=== PATIENT | female | born 1975 | race Caucasian/White ===

== ENCOUNTER 2018-03-27 12:49 | Emergency (ER) | payer MEDICAID, SELFPAY ==
[2018-03-27 12:49] VITALS: BP 122/70; PULSE 84; RESP 18; TEMP 36.6; O2SAT 99; BMI 37.1
[2018-03-27 13:08] VITALS: BP 115/75; PULSE 80; RESP 14; O2SAT 98
--- NOTE | 2018-03-27 13:26 | CT_ITS ---
STUDY: CT CERVICAL SPINE WITHOUT CONTRAST REASON FOR EXAM: Female, 43 years old. NUMB TINGLING BOTH ARMS. CERVICAL FUSION 2017 RADIATION DOSAGE (If Supplied By Facility): CTDIvol = ( 27.59 ) mGy, DLP = ( 518.36 ) mGycm TECHNIQUE: The patient was scanned in a multi detector CT scanner. High resolution transaxial imaging was performed. Sagittal and coronal images were reconstructed. Individualized dose optimization techniques were used for this CT. COMPARISON: None FINDINGS: There is normal cervical lordosis. There are no fractures of the cervical spine. The atlantoaxial relationships are normal.. Prevertebral soft tissues are within normal limits. There is anterior fusion at C5/C6 There is multilevel endplate spondylosis of the vertebrae. There is multi-level degenerative disc disease with multi-level disc space narrowing. Normal visualized paraspinous soft tissue structures. CT/Spine Cervical without Contras IMPRESSION: No demonstrated fractures. Multilevel degenerative changes. Electronically Signed: Roger Carlson MD at 13:57 EDT Tel , Service support ,
--- NOTE | 2018-03-27 14:10 | ED.VISSUMM ---
- ER Visit Summary Date of Service: 03/27/18 Chief Complaint: Numbness bilateral arms History of Present Illness: The patient is a 43 F with a history of cervical fusion a year and a half ago. Patient recently started a new job 3 weeks ago where she is lifting heavier objects again. She now has pain that radiates to her arms with waxing and waning numbness. She states her arms will occasionally feel weak. She has not had any direct injury to her neck. She is not currently taking anything for pain. Physical Examination: Vital signs are unremarkable. Patient's lying in bed no acute distress. Head neck examination was no reproducible C-spine tenderness. Heart is regular rate and rhythm. Lung sounds are clear. Abdomen is soft nontender. Neuro exam at this time is normal. She has strong distal pulses with normal strength and sensation on testing. Test Results: CT the C-spine shows multilevel degenerative changes. Anterior fusion at C5-6 is noted. Emergency Department Course and Treatment: Test results were discussed with the patient. I discussed with her that MRI would be a better exam to evaluate the nurse, however I do not have access to this for the emergency room on a weekend. I encouraged her to follow up with her surgeon. In the meantime she will be given Naprosyn and Valium as a relaxer. Treatment Plan: [] Disposition: Discharge Impression: Cervical radiculopathy This note was generated with [employer] dictation software. It may contain incorrect words, spelling, and punctuation that were not noted in review of the chart prior to signing ED Disposition - Plan for ED Patient: Chief Complaint: Numb/Ting Referrals: [facility] Doctor,Out of [Primary Care Provider] -
--- NOTE | 2018-03-27 14:12 | ED.DEP ---
ED Disposition - Plan for ED Patient: Disposition: Home or Assisted Living Chief Complaint: Numb/Ting Instructions: ED Cervical Radiculopathy Prescriptions: Diazepam [Valium] 0.5 - 1 tab PO Q8 PRN #10 tablet PRN Reason: Muscle Spasm Naproxen [Naprosyn] 500 mg PO BID PRN PRN #20 tablet PRN Reason: Pain Referrals: Chan Mcclendon MD [STAFF PHYSICIAN] - As Needed
[2018-03-27] MEDS: Naproxen 500 MG Tablet PO (14:24)
[2018-03-27 14:40] VITALS: BP 130/78; PULSE 80; RESP 14; O2SAT 98
== END 2018-03-27 14:41 | disposition home or self-care (01) ==
PROVIDERS: Emergency Provider Emergency Medicine
DX: M54.12 Radiculopathy, cervical region (principal)
CPT/HCPCS: 72125; 99283

== ENCOUNTER 2018-04-14 10:27 | Emergency (ER) | payer MEDICAID, SELFPAY ==
[2018-04-14 10:28] VITALS: BP 112/82; PULSE 87; RESP 16; TEMP 36.7; O2SAT 99; BMI 39.7
--- NOTE | 2018-04-14 10:44 | NURSING ---
NO OLD EKGS
--- NOTE | 2018-04-14 10:46 | ED.DCSUM_ITS ---
- ER Visit Summary Date of Service: 04/14/18 Chief Complaint: Bilateral arm paresthesias History of Present Illness: The patient is a 43 F who presents with bilateral arm paresthesias. Patient was seen in the emergency department at the end of March had a CT scan of her neck showed multilevel degenerative changes and a cervical fusion. Patient was given naproxen and Valium which she is not taking stating they were not helping when she took them. She states she made an appointment with her spine surgeon but not until May. She reports that with her new job she is doing more lifting than normal and wonders if that is causing her symptoms. She came to the emergency department hoping to get an MRI. Denies any acute neurologic deficits. No known trauma Physical Examination: Afebrile vital signs are stable Gen: Well-nourished well-developed Head: Normocephalic atraumatic Eyes: Perrl EOMI ENT: TMs clear no rhinorrhea moist mucous membranes Neck: Supple no lymphadenopathy no JVD paraspinal muscular tenderness to palpation CVS: Regular rate rhythm no murmurs normal S1-S2 Respiratory: No distress clear to auscultation bilaterally chest nontender Abdomen: Soft nontender nondistended normal bowel sounds no masses Back: Nontender Extremity: Nontender no edema Skin: Normal color no rash Neuro: alert orientated ?3 CN II-XII intact normal strength sensation reflexes gait cerebellar Psych: Normal affect normal mood Emergency Department Course and Treatment: Do not feel an emergent MRI is indicated. I did review the patient's cervical spine CT. I encouraged use of the naproxen for its anti-inflammatory effects. Patient would like to see if she is a diabetic and will check her blood sugar. If this is okay we can do a short dose of steroids to see if that helps her. She was encouraged to establish primary care (she tried to do that last week but was a no-show for her appointment). Impression: 1. Cervical radiculopathy This note was generated with [employer] dictation software. It may contain incorrect words, spelling, and punctuation that were not noted in review of the chart prior to signing ED Disposition - Plan for ED Patient: Disposition: Home or Assisted Living Chief Complaint: Numb/Ting Instructions: ED Cervical Radiculopathy Prescriptions: Prednisone [Deltasone] 40 mg PO DAILY #10 tab Additional Instructions: Follow-up with your neurosurgeon I encourage you to establish primary care
[2018-04-14 11:10] LABS: Bedside Glucose 93 mg/dL (70-110)
== END 2018-04-14 11:20 | disposition home or self-care (01) ==
LOC: ED 10:56
PROVIDERS: Emergency Provider Emergency Medicine
DX: M54.12 Radiculopathy, cervical region (principal); Z98.1 Arthrodesis status
CPT/HCPCS: 82962; 99282

== ENCOUNTER → 2018-07-18 09:36 | Outpatient (CLI) | payer MEDICAID, SELFPAY ==
[2018-07-18 08:59] VITALS: BMI 40.3
[2018-07-18 09:55] LABS: Absolute Lymphocyte Count 1.35 X10^3/ul (0.83-4.51); Absolute Neutrophil Count 4.4 X10^3/uL (2.0-7.7); Basophil# 0.02 X10^3/uL; Basophil% 0.3 % (0-1); Eosinophil# 0.14 X10^3/uL; Eosinophils% 2.2 % (0-5); Hematocrit 39.7 % (37-47); Hemoglobin 13.3 g/dl (12.0-15.0); Lymphocyte # 1.35 X10^3/ul (4.0); Lymphocyte % 21.5 % (19-41); Mean Corp Hgb Conc 33.5 g/gl (32-36); Mean Corpuscular Hgb 30.1 pg (27.0-32.0); Mean Corpuscular Volume 89.8 fL (81-99); Mean Platelet Vol. 9.9 fl (6.2-12.0); Monocyte# 0.31 X10^3/uL; Monocyte% 4.9 % (0-10); Neutrophil # 4.44 X10^3/uL (2.7-7.7); Neutrophil % 70.9 % (47-70); Platelet Count 188 K/mm3 (150-450); RBC Distribution Width CV 12.8 % (11.6-14.6); RBC Distribution Width SD 41.5 fl (35.1-43.9); Red Blood Count 4.42 M/mm3 (4.2-5.4); White Blood Count 6.3 K/mm3 (4.4-11.0)
[2018-07-18 09:56] LABS: POSITIVE COUNT NO; POSITIVE DIFFERENTIAL NO; POSITIVE MORPHOLOGY NO
[2018-07-18 10:27] LABS: T4 Free Direct 0.79 ng/dL (0.76-1.46); Thyroid Stim Hormone (TSH) 2.75 uIU/mL (0.358-3.74)
[2018-07-18 10:30] LABS: ALB/GLOB Ratio 1.4 RATIO (0.9-2.4); AST(SGOT) 12 U/L (15-37); Alanine Aminotransfer ALT/SGPT 23 U/L (13-56); Albumin, Serum 3.8 g/dL (3.2-5.0); Alkaline Phosphatase 45 U/L (45-117); Anion Gap 9 (5-15); BUN 10 mg/dL (7-18); BUN/Creat Ratio 14.3 RATIO (10-20); Calcium,Total 8.3 mg/dL (8.5-10.1); Chloride 106 mmol/L (98-107); Cholesterol 220 mg/dL (200); EST Glomerular Filtration Rate 98 mL/min (>60); Est Glom Filt Rate - Afr Amer 118 mL/min (>60); Globulin 2.8 g/dL (2.2-4.2); Glucose 92 mg/dL (74-106); High Density Lipoprotein 36 mg/dL; Protein, Total 6.6 g/dL (6.4-8.2); Sodium Level 138 mmol/L (136-145); Triglycerides 438 mg/dL
== END ==
PROVIDERS: Family Provider Internal Medicine; PCP Internal Medicine; Visit Provider Internal Medicine
DX: E07.9 Disorder of thyroid, unspecified (principal)
CPT/HCPCS: 36415; 80053; 80061; 84439; 84443; 85025

== ENCOUNTER → 2020-03-08 09:32 | Outpatient (CLI) | payer MEDICAID, SELFPAY ==
[2020-03-08 09:13] VITALS: BMI 40.3
[2020-03-08 12:23] LABS: Absolute Lymphocyte Count 1.51 X10^3/uL (0.83-4.51); Absolute Neutrophil Count 3.5 X10^3/uL (2.0-7.7); Basophil# 0.03 X10^3/uL; Basophil% 0.6 % (0-1); Eosinophil# 0.13 X10^3/uL; Eosinophils% 2.4 % (0-5); Hematocrit 39.6 % (37-47); Hemoglobin 13.3 g/dL (12.0-15.0); Lymphocyte # 1.51 X10^3/ul (4.0); Lymphocyte % 27.7 % (19-41); Mean Corp Hgb Conc 33.6 g/dL (32-36); Mean Corpuscular Hgb 30.4 pg (27.0-32.0); Mean Corpuscular Volume 90.4 fL (81-99); Mean Platelet Vol. 10.9 fl (6.2-12.0); Monocyte% 5.5 % (0-10); NRBC Flagged by Analyzer 0 % (0-5); Neutrophil # 3.47 X10^3/uL (2.7-7.7); Neutrophil % 63.6 % (47-70); Platelet Count 232 K/mm3 (150-450); RBC Distribution Width CV 12.7 % (11.6-14.6); RBC Distribution Width SD 41.5 fl (35.1-43.9); Red Blood Count 4.38 M/mm3 (4.2-5.4); White Blood Count 5.5 K/mm3 (4.4-11.0)
[2020-03-08 12:29] LABS: ALB/GLOB Ratio 1.3 RATIO (0.9-2.4); AST(SGOT) 14 U/L (15-37); Alanine Aminotransfer ALT/SGPT 18 U/L (13-56); Alkaline Phosphatase 50 U/L (45-117); Anion Gap 7 (5-15); BUN 11 mg/dL (7-18); BUN/Creat Ratio 16.2 RATIO (10-20); Calcium,Total 8.8 mg/dL (8.5-10.1); Chloride 109 mmol/L (98-107); Cholesterol 199 mg/dL (200); Creatinine, Serum 0.68 mg/dL (0.55-1.02); EST Glomerular Filtration Rate 100 mL/min (>60); Est Glom Filt Rate - Afr Amer 121 mL/min (>60); Globulin 3.1 g/dL (2.2-4.2); Glucose 84 mg/dL (74-106); High Density Lipoprotein 38 mg/dL; Potassium 3.8 mmol/L (3.5-5.1); Protein, Total 7.1 g/dL (6.4-8.2); Sodium Level 141 mmol/L (136-145); Triglycerides 142 mg/dL; Very Low Density Lipoprotein 28 mg/dL (5-40)
== END ==
PROVIDERS: PCP Internal Medicine; Referring Provider Internal Medicine; Visit Provider Internal Medicine
DX: E78.5 Hyperlipidemia, unspecified (principal); F41.8 Other specified anxiety disorders
CPT/HCPCS: 36415; 80053; 80061; 85025

== ENCOUNTER → 2020-03-22 13:00 | Outpatient (CLI) | payer MEDICAID, SELFPAY ==
[2020-03-08 09:13] VITALS: BMI 40.3
--- NOTE | 2020-03-22 13:12 | BI_ITS ---
MAMMOGRAPHY - BILATERAL SCREENING REASON FOR EXAM: Female, 45 years old. Routine annual screening examination. PERTINENT HISTORY: Aunt with breast cancer. TECHNIQUE: Digital bilateral breast jossy (3D mammographic acquisition) in the CC and MLO projections. 2-D mediolateral oblique (MLO) and craniocaudad (CC) views of both breasts were obtained. CAD: Full Field Digital Mammography with Computer Added Detection was performed. COMPARISON: None. Baseline examination. FINDINGS: Breast Composition: There are scattered areas of fibroglandular density. There are no dominant masses or suspicious calcifications. Small benign-appearing bilateral axillary lymph nodes. No other significant abnormalities are identified. BI/SCREEN MAMM (CAD) W/JOSSY BILAT IMPRESSION: Negative screening mammogram. Yearly followup mammogram recommended. (A) ASSESSMENT CATEGORY: BIRADS Category 2: Benign. A letter regarding these results will be sent to the patient by the facility within 30 days. Approximately 10% of breast cancers are not detected by mammography. A normal mammogram should not delay biopsy of a clinically suspicious abnormality. [id number] Electronically Signed: Rojas Layne, at 14:04 EDT , Service support ,
== END ==
PROVIDERS: PCP Internal Medicine; Referring Provider Internal Medicine; Visit Provider Internal Medicine
DX: Z12.31 Encounter for screening mammogram for malignant neoplasm of breast (principal); Z80.3 Family history of malignant neoplasm of breast
CPT/HCPCS: 77063; 77067

== ENCOUNTER → 2020-03-28 08:54 | Outpatient (CLI) | payer MEDICAID, SELFPAY ==
[2020-03-27 14:35] VITALS: BMI 40.3
[2020-03-28 12:27] LABS: Amphetamine Urine VISTA NEGATIVE (<1000 ng/mL); Barbiturate Urine VISTA NEGATIVE (< 200 ng/mL); Benzodiazepine Urine VISTA NEGATIVE (< 200 ng/mL); Cocaine Urine VISTA NEGATIVE (< 300 ng/mL); Ecstacy Urine VISTA NEGATIVE (< 500 ng/mL); Methadone Urine VISTA NEGATIVE (< 300 ng/mL); PCP Urine VISTA NEGATIVE (< 25 ng/mL); THC Urine VISTA NEGATIVE (< 50 ng/mL); Vista UDS pH Range 6
== END ==
PROVIDERS: PCP Internal Medicine; Referring Provider Nurse Practitioner Family; Visit Provider Nurse Practitioner Family
DX: F41.8 Other specified anxiety disorders (principal)
CPT/HCPCS: 80307

== ENCOUNTER 2021-05-21 13:13 | Emergency (ER) | payer MEDICAID, SELFPAY ==
[2021-05-21 13:14] VITALS: BP 161/93; PULSE 93; RESP 18; TEMP 36.4; O2SAT 99; BMI 35.6
--- NOTE | 2021-05-21 15:09 | EKG12_ITS ---
Test Reason : OTHER PAIN Blood Pressure : / mmHG Vent. Rate : 064 BPM Atrial Rate : 064 BPM P-R Int : 152 ms QRS Dur : 084 ms QT Int : 404 ms P-R-T Axes : 026 031 015 degrees QTc Int : 416 ms Normal sinus rhythm Normal ECG Confirmed by SAMMY SCALES, LEO ([id number]), make up editor MIGUEL ENCISO ([id number]) on 05/23/2021 1:51:44 P M Referred By: SEDA Confirmed By:DMITRIY CHRISTIANSON MD
--- NOTE | 2021-05-21 15:12 | EDS_ITS ---
HPI History of Present Illness Chief Complaint: Other, Pain/Inj Informant: patient Onset/Context/Timing Onset: Hours (3) Context: Sudden Onset Timing: Continuous Quality: Stabbing Location: Between her shoulder blades Worsened by: Nothing Relieved by: Stretching Narrative Narrative: Presents with sharp stabbing pain between her shoulder blades that began approximate 3 hours prior to arrival. Patient also states she has been having some burning over the epigastric area. Patient describes her pain is stabbing. Patient states it is better whenever she stretches. Patient also admits to some pain up into her left shoulder and left arm. Patient also admits to some dizziness that has been intermittent over the past 3 hours. Patient states she gets dizziness from time to time in the past. Patient admits to some mild shortness of breath. Patient denies any chest pain or palpitations. Patient admits to nausea but denies any vomiting. [facility] Medical History (Updated 05/21/21 @ 18:[address] Marcellus Stephens DO) Chronic back pain Depression Home Medications bupropion HCl 150 mg tablet,12 hr sustained-release 150 mg PO BID #180 ea 08/02/20 [Rx Last Taken Unknown] Allergy/AdvReac Type Severity Reaction Status Date / Time Penicillins Allergy Rash Verified 05/21/21 13:16 Family History Father Cancer Depression Heart disease Hypertension Mother Hypertension Surgical History History of back surgery Social History Smoking Status: Current every day smoker tobacco type: cigars Tobacco: How many years used: 15 how long ago did patient quit smokin alcohol intake: current alcohol intake frequency: a few times a month Alcohol type: wine substance use type: marijuana what type of physical activity do you participate in: none ROS ROS ED Constitutional Constitutional ED: Denies chills or fever(s) Eyes Eyes: Denies blurry vision or change in vision ENT ENT ED: Denies rhinorrhea or sore throat Cardiovascular Cardiovascular: Denies chest pain or palpitations Respiratory/Chest Respiratory/Chest: Reports dyspnea; Denies cough Gastrointestinal Gastrointestinal: Reports nausea; Denies vomiting Genitourinary Genitourinary ED: Denies dysuria or hematuria Musculoskeletal Musculoskeletal: Reports back pain and neck pain Integumentary Denies abscess or rash Neurologic Neurologic: Reports headache(s); Denies weakness Allergic/Immunologic Allergic/Immunologic ED: Denies mouth swelling or urticaria EXAM Physical Exam Const Vital Signs: 05/21/21 13:14 05/21/21 15:57 05/21/21 17:00 Temperature 97.6 F L Temperature Source Temporal Pulse Rate 93 69 Respiratory Rate 18 18 Respiratory Effort Normal Non-Labored Respiratory Pattern Normal Blood Pressure 161/93 H 157/109 H Blood Pressure Mean 115 125 Pulse Ox 99 100 Oxygen Delivery Method Room Air Room Air Positive well nourished, well developed and obese General Appearance ED: well developed Nutritional Appearance: obese HEENT Reports moist mucous membranes Neck supple and no JVD Resp normal respiratory effort and clear to auscultation bilaterally Cardio regular rate, regular rhythm and no murmurs GI normal to inspection, nondistended, normoactive bowel sounds and non-tender Palpation: soft Back/Spine Thoracic Spine / Upper Back: Negative for thoracic spinal tenderness or paraspinal muscle tenderness Extremity normal to inspection General Extremety ED: Negative for edema or tenderness General Extremity: Negative for edema Neuro oriented x3, CN's II-XII intact bilaterally and no sensory deficits noted Sensorium / Orientation: alert Motor Exam: strength 5/5 throughout Psych mental status grossly normal Skin no rashes or lesions noted MDM MDM MDM Narrative Medical decision making narrative: Patient was given Zofran and a GI cocktail here. EKG was obtained. On my interpretation, it showed a normal sinus rhythm with a rate of 64. AL interval, QRS interval, and QTc intervals were all normal. [place] was normal. There are no acute ST or T wave changes. CBC was wi thin normal limits. Comprehensive metabolic profile was normal. Initial high- sensitivity troponin was normal. CTA of the chest was obtained. There is no evidence of pulmonary embolism or aortic dissection. There is no acute cardiopulmonary process. This was interpreted by the radiologist and reviewed by myself. 2-hour repeat EKG was obtained. On my interpretation, it showed a normal sinus rhythm with a rate of 70. AL interval, QRS interval, and QTc intervals were all normal. [place] was normal. There are no acute ST or T wave changes. 2-hour repeat high-sensitivity troponin was obtained and was normal. Patient was advised of her findings. Patient was feeling better on reevaluation. Patient was instructed to take Tylenol or ibuprofen as needed for pain. Patient was instructed to follow-up with her primary care physician in 5 to 7 days. Patient understood and was agreeable with the plan. All questions were answered. Lab Data Attestation: I reviewed the patient's lab results. Labs: Laboratory Results - last 24 hr 05/21/21 05/21/21 05/21/21 15:40 15:40 17:09 WBC 8.7 RBC 4.78 Hgb 14.3 Hct 42.0 MCV 87.9 MCH 29.9 MCHC 34.0 RDW Std Deviation 40.1 RDW Coeff of Tomasa 12.4 Plt Count 225 MPV 10.0 Immature Gran % (Auto) 0.300 Neut % (Auto) 78.8 H Lymph % (Auto) 16.0 L [place] % (Auto) 3.4 Eos % (Auto) 1.0 Baso % (Auto) 0.5 Absolute Neuts (auto) 6.9 Absolute Lymphs (auto) 1.40 Nucleated RBC % 0 Sodium 136 Potassium 4.8 Chloride 109 H Carbon Dioxide 25.0 Anion Gap 2 L BUN 9 Creatinine 0.73 Estim Creat Clear Calc 94.64 Est GFR (MDRD) Af Amer 112 Est GFR (MDRD) Non-Af 92 BUN/Creatinine Ratio 12.4 Glucose 87 Calcium 9.0 Total Bilirubin 0.80 AST 27 ALT 23 Alkaline Phosphatase 45 Troponin I High Sens 5 6 Total Protein 7.4 Albumin 3.9 Globulin 3.5 Albumin/Globulin Ratio 1.1 Radiography Diagnostic Testing: Clinical Impression(s) from Imaging Studies Chest CTA 05/21/21 16:05 IMPRESSION: Normal CTA chest examination, without a demonstrated pulmonary embolism or arterial dissection. Electronically Signed: Mckinley Reid MD at 17:15 EST Tel , Service support , EKG Initial EKG: Attestation: I personally reviewed and interpreted this EKG as follows: Interpretation: Sinus Rhythm (64) and No Acute Injury Pattern Prior EKG tracings: not available for review Follow-up EKG: Attestation: I personally reviewed and interpreted this EKG as follows: Interpretation: Sinus Rhythm (70) and No Acute Injury Pattern Prior: Unchanged Discharge Plan Triage Chief Complaint: Other, Pain/Inj ED Provider: Marcellus Stephens Dx/Rx/DC Orders Clinical Impression: Acute bilateral thoracic back pain Instructions: ED Back and Neck Pain, General Prescriptions: No Action bupropion HCl [Wellbutrin SR] 150 mg tablet sustained-release 12 hr 150 mg PO BID Qty: 180 RF: 1 Primary Care Provider: Chan Mcclendon Referrals: Chan Mcclendon MD [Primary Care Provider] - 3-5 Days Disposition Disposition: Home, Self Care
--- NOTE | 2021-05-21 15:18 | NURSING ---
NO OLD EKGS
[2021-05-21 15:48] LABS: Absolute Neutrophil Count 6.9 X10^3/uL (2.0-7.7); Basophil# 0.04 X10^3/uL; Basophil% 0.5 % (0-1); Eosinophil# 0.09 X10^3/uL; Hemoglobin 14.3 g/dL (12.0-15.0); Mean Corpuscular Hgb 29.9 pg (27.0-32.0); Mean Corpuscular Volume 87.9 fL (81-99); Monocyte% 3.4 % (0-10); NRBC Flagged by Analyzer 0 % (0-5); Neutrophil # 6.88 X10^3/uL (2.7-7.7); Neutrophil % 78.8 % (47-70); Platelet Count 225 K/mm3 (150-450); RBC Distribution Width CV 12.4 % (11.6-14.6); RBC Distribution Width SD 40.1 fl (35.1-43.9); Red Blood Count 4.78 M/mm3 (4.2-5.4); White Blood Count 8.7 K/mm3 (4.4-11.0)
[2021-05-21] MEDS: Mag Hydrox/Al Hydrox/Simeth 30 ML UDC PO (15:50)
[2021-05-21] MEDS: Ondansetron 4 MG/2 ML Vial IV (15:50)
--- NOTE | 2021-05-21 16:05 | CT_ITS ---
STUDY: CTA CHEST REASON FOR EXAM: Female, 46 years old. pain RADIATION DOSAGE (If Supplied By Facility): CTDIvol = ( 13.76 ) mGy, DLP = ( 549.87 ) mGycm TECHNIQUE: The examination was performed with the intravenous administration of IV 100mL Isovue-370. Post-processing of the angiographic images was performed, with multiplanar reformation and 3D reconstruction. Individualized dose optimization techniques were used for this CT. COMPARISON: None. FINDINGS: Normal enhancement of the main pulmonary artery and right and left pulmonary arteries. Normal enhancement of the bilateral peripheral pulmonary arteries. There is no demonstrated pulmonary embolism. Normal thoracic aorta and visualized great vessels. There is no demonstrated aortic dissection. Normal heart and pericardium. Normal mediastinum. Normal hilar regions. Normal visualized trachea and bronchi. The lungs are well expanded. Normal pulmonary parenchyma. Normal pleura. Normal chest wall structures. Normal osseous structures. Normal visualized upper abdomen. CT/CTA Chest W/WO Contrast IMPRESSION: Normal CTA chest examination, without a demonstrated pulmonary embolism or arterial dissection. Electronically Signed: Mckinley Reid MD at 17:15 EST Tel , Service support ,
[2021-05-21 16:16] LABS: ALB/GLOB Ratio 1.1 RATIO (0.9-2.4); AST(SGOT) 27 U/L (15-37); Alanine Aminotransfer ALT/SGPT 23 U/L (13-56); Albumin, Serum 3.9 g/dL (3.2-5.0); Alkaline Phosphatase 45 U/L (45-117); Anion Gap 2 (5-15); BUN 9 mg/dL (7-18); BUN/Creat Ratio 12.4 RATIO (10-20); Chloride 109 mmol/L (98-107); Creatinine, Serum 0.73 mg/dL (0.55-1.02); EST Glomerular Filtration Rate 92 mL/min (>60); Est Glom Filt Rate - Afr Amer 112 mL/min (>60); Estimated Creatinine Clearance 94.64 ml/min; Globulin 3.5 g/dL (2.2-4.2); Glucose 87 mg/dL (74-106); Potassium 4.8 mmol/L (3.5-5.1); Protein, Total 7.4 g/dL (6.4-8.2); Sodium Level 136 mmol/L (136-145); Troponin-I HS 5 pg/mL (3.0-54.0)
[2021-05-21 17:00] VITALS: BP 157/109; PULSE 69; RESP 18; O2SAT 100
--- NOTE | 2021-05-21 17:09 | EKG12_ITS ---
Test Reason : REPEAT Blood Pressure : / mmHG Vent. Rate : 070 BPM Atrial Rate : 070 BPM P-R Int : 146 ms QRS Dur : 082 ms QT Int : 398 ms P-R-T Axes : 019 032 016 degrees QTc Int : 429 ms Normal sinus rhythm Normal ECG Confirmed by SAMMY SCALES, LEO ([id number]), television news video editor MIGUEL ENCISO ([id number]) on 05/23/2021 1:52:02 P M Referred By: SEDA Confirmed By:DMITRIY CHRISTIANSON MD
[2021-05-21 17:43] LABS: Troponin-I HS 6 pg/mL (3.0-54.0)
--- NOTE | 2021-05-21 19:01 | ED.RN ---
Upon entering room to discharge patient, patient was gone and gown and EKG stickers were on the bed. Pt had IV in place and it is unknown if patient left with it still in place. There was no IV cathter/dressing found in room or trash. Called patient phone and left a message.
--- NOTE | 2021-05-21 19:04 | ED.RN ---
This RN spoke with patient on the phone, patient states she left because she was cold and hungry. This acquired about the IV in her arm, she states she still has it in her arm and she planned on seeing her nurse to have it taken out This RN explains to patient she needs to return to ED immediately to have it removed by ED staff.
--- NOTE | 2021-05-21 19:30 | ED.RN ---
PT RETURNED TO THE TRIAGE DESK AT THIS TIME. PT'S IV D/C, CANNULA INTACT. DRESSING APPLIED.
== END 2021-05-21 19:39 | disposition home or self-care (01) ==
PROVIDERS: Emergency Provider Emergency Medicine; PCP Internal Medicine
DX: M54.6 Pain in thoracic spine (principal); F17.290 Nicotine dependence, other tobacco product, uncomplicated; F32.A Depression, unspecified; G89.29 Other chronic pain
CPT/HCPCS: 71275; 80053; 84484; 85025; 93005; 96374; 99284; Q9967; A4216; J2405

== ENCOUNTER → 2022-03-31 | Outpatient (CLI) | payer MEDICAID, SELFPAY ==
[2022-03-31 12:12] LABS: Absolute Lymphocyte Count 1.41 X10^3/uL (0.83-4.51); Basophil# 0.03 X10^3/uL; Basophil% 0.6 % (0-1); Eosinophil# 0.16 X10^3/uL; Eosinophils% 3.3 % (0-5); Hematocrit 41.5 % (37-47); Hemoglobin 13.9 g/dL (12.0-15.0); Lymphocyte # 1.41 X10^3/ul (0.83-4.51); Lymphocyte % 28.8 % (19-41); Mean Corp Hgb Conc 33.5 g/dL (32-36); Mean Corpuscular Volume 89.4 fL (81-99); Mean Platelet Vol. 10.8 fl (6.2-12.0); Monocyte# 0.24 X10^3/uL; Monocyte% 4.9 % (0-10); NRBC Flagged by Analyzer 0 % (0-5); Neutrophil # 3.03 X10^3/uL (2.7-7.7); Platelet Count 228 K/mm3 (150-450); RBC Distribution Width CV 12.3 % (11.6-14.6); RBC Distribution Width SD 40.3 fl (35.1-43.9); Red Blood Count 4.64 M/mm3 (4.2-5.4); White Blood Count 4.9 K/mm3 (4.4-11.0)
[2022-03-31 12:33] LABS: ALB/GLOB Ratio 1.1 RATIO (0.9-2.4); AST(SGOT) 11 U/L (15-37); Alanine Aminotransfer ALT/SGPT 26 U/L (13-56); Albumin, Serum 3.8 g/dL (3.2-5.0); Alkaline Phosphatase 46 U/L (45-117); Anion Gap 8 (5-15); BUN 11 mg/dL (7-18); BUN/Creat Ratio 14.7 RATIO (10-20); Calcium,Total 8.8 mg/dL (8.5-10.1); Chloride 107 mmol/L (98-107); Cholesterol 210 mg/dL (200); Creatinine, Serum 0.75 mg/dL (0.55-1.02); EST Glomerular Filtration Rate 89 mL/min (>60); Est Glom Filt Rate - Afr Amer 107 mL/min (>60); Globulin 3.4 g/dL (2.2-4.2); Glucose 95 mg/dL (74-106); High Density Lipoprotein 45 mg/dL; Potassium 4.3 mmol/L (3.5-5.1); Protein, Total 7.2 g/dL (6.4-8.2); Sodium Level 140 mmol/L (136-145); Thyroid Stim Hormone (TSH) 2.21 uIU/mL (0.358-3.74); Triglycerides 147 mg/dL; Very Low Density Lipoprotein 29 mg/dL (5-40)
== END | disposition home or self-care (01) ==
LOC: BIMLAB 10:39
PROVIDERS: PCP Internal Medicine; Referring Provider Nurse Practitioner Family; Visit Provider Nurse Practitioner Family
DX: E78.5 Hyperlipidemia, unspecified (principal); E07.9 Disorder of thyroid, unspecified; M54.9 Dorsalgia, unspecified; G89.29 Other chronic pain; F41.8 Other specified anxiety disorders
CPT/HCPCS: 36415; 80053; 80061; 84443; 85025

== ENCOUNTER → 2024-05-19 | Outpatient (CLI) | payer MEDICAID, SELFPAY ==
[2024-05-19 15:24] LABS: Absolute Lymphocyte Count 1.74 X10^3/uL (0.83-4.51); Absolute Neutrophil Count 4.1 X10^3/uL (2.0-7.7); Basophil# 0.03 X10^3/uL; Basophil% 0.5 % (0-1); Eosinophils% 1.6 % (0-5); Hematocrit 37.8 % (37-47); Lymphocyte # 1.74 X10^3/ul (0.83-4.51); Mean Corp Hgb Conc 34.4 g/dL (32-36); Mean Corpuscular Hgb 30.9 pg (27.0-32.0); Mean Corpuscular Volume 89.8 fL (81-99); Mean Platelet Vol. 10.9 fl (6.2-12.0); Monocyte# 0.27 X10^3/uL; Monocyte% 4.3 % (0-10); NRBC Flagged by Analyzer 0 % (0-5); Neutrophil # 4.05 X10^3/uL (2.7-7.7); Neutrophil % 65.3 % (47-70); Platelet Count 219 K/mm3 (150-450); RBC Distribution Width CV 12.4 % (11.6-14.6); RBC Distribution Width SD 40.5 fl (35.1-43.9); Red Blood Count 4.21 M/mm3 (4.2-5.4); White Blood Count 6.2 K/mm3 (4.4-11.0)
[2024-05-19 15:53] LABS: ALB/GLOB Ratio 1.2 RATIO (0.9-2.4); AST(SGOT) 10 U/L (15-37); Alanine Aminotransfer ALT/SGPT 19 U/L (13-56); Albumin, Serum 3.8 g/dL (3.2-5.0); Alkaline Phosphatase 34 U/L (45-117); Anion Gap 5 (5-15); BUN 15 mg/dL (7-18); BUN/Creat Ratio 22.9 RATIO (10-20); Chloride 112 mmol/L (98-107); Cholesterol 198 mg/dL (200); Creatinine, Serum 0.66 mg/dL (0.55-1.02); EST Glomerular Filtration Rate 102 mL/min (>60); Est Glom Filt Rate - Afr Amer 124 mL/min (>60); Globulin 3.2 g/dL (2.2-4.2); Glucose 85 mg/dL (74-106); High Density Lipoprotein 58 mg/dL; Potassium 4.3 mmol/L (3.5-5.1); Sodium Level 139 mmol/L (136-145); Triglycerides 81 mg/dL; Very Low Density Lipoprotein 16 mg/dL (5-40)
== END | disposition home or self-care (01) ==
LOC: BIMLAB 12:06
PROVIDERS: PCP Internal Medicine; Referring Provider Physician Assistant; Visit Provider Physician Assistant
DX: Z00.00 Encounter for general adult medical examination without abnormal findings (principal); R42 Dizziness and giddiness
CPT/HCPCS: 36415; 80053; 80061; 84443; 85025

== ENCOUNTER 2025-05-23 10:57 | Emergency (ER) | payer OTHER, SELFPAY ==
[2025-05-23 10:57] VITALS: BP 134/64; PULSE 83; RESP 14; TEMP 36.6; O2SAT 98
[2025-05-23 11:07] VITALS: BMI 31.8
[2025-05-23 11:15] VITALS: BP 120/62; PULSE 79; RESP 16; O2SAT 99
[2025-05-23 11:19] VITALS: BP 120/62; PULSE 79; RESP 16; TEMP 36.6; O2SAT 99
--- NOTE | 2025-05-23 11:19 | ED.VIS.LOWEX ---
HPI History of Present Illness Chief Complaint: Lower Extremity Injury Informant: patient Narrative Narrative: 50-year-old female presenting to the emergency room with concerns of a varicose vein. Patient states that she has varicose veins and is on her feet for work for long periods of time. She said last night she felt something hard in the vein of her anterior thigh. States she was rubbing at and then noticed some blood underneath the skin forming around it. She denies any swelling of the calf or the distal leg. No pain in the calf. No history of DVT/PE. No known clotting disorders. PFSH PFSH Medical History Elevated glucose Hypersomnia Depression Chronic back pain Home Medications ?Medication ?Instructions ?Recorded ?Last Taken ?Type methylprednisolone 4 mg tablets in See Rx Instructions PO PER PKG DIR 05/19/24 Unknown Rx a dose pack (Medrol (Giovanni)) #21 tabs Allergy/AdvReac Type Severity Reaction Status Date / Time Penicillins Allergy Rash Verified 05/23/25 10:59 bupropion AdvReac Intermediate Other Verified 05/23/25 10:59 Family History Father Cancer Depression Heart disease Hypertension Mother Hypertension Surgical History History of back surgery Social History Smoking Status: Former smoker Tobacco: How many years used: 15 how long ago did patient quit smokin alcohol intake: current alcohol intake frequency: a few times a month Alcohol type: wine substance use type: does not use and marijuana what type of physical activity do you participate in: none seatbelt use: always do you feel safe at home: Yes ROS ROS ED Constitutional Constitutional ED: Denies chills, fever(s) or weight loss Eyes Eyes: Denies change in vision or diplopia ENT ENT ED: Denies ear pain, rhinorrhea or sore throat Cardiovascular Cardiovascular: Denies chest pain, orthopnea, palpitations or racing heartbeat Respiratory/Chest Respiratory/Chest: Denies cough, dyspnea or orthopnea Gastrointestinal Gastrointestinal: Denies abdominal pain, diarrhea, nausea or vomiting Genitourinary Genitourinary ED: Denies dysuria, hematuria or urinary frequency Musculoskeletal Musculoskeletal: Denies arthralgias or myalgias Integumentary Reports other Details: See history of present illness ; Denies abscess or rash Neurologic Neurologic: Denies headache(s) or weakness Psychiatric Psychiatric: Denies anxiety, depression, suicidal ideation or suicidal thoughts Endocrine Endocrinology: Denies polydipsia, polyphagia or polyuria Hematologic/Lymphatic Hematologic/Lymphatic: Denies easy bleeding or easy bruising Allergic/Immunologic Allergic/Immunologic ED: Denies mouth swelling, tongue swelling or urticaria EXAM Physical Exam Const Vital Signs: 05/23/25 10:57 05/23/25 11:15 Temperature 98 F Temperature Source Temporal Pulse Rate 83 79 Respiratory Rate 14 16 Blood Pressure 134/64 H 120/62 Blood Pressure Mean 87 81 Pulse Ox 98 99 Oxygen Delivery Method Room Air Room Air Positive well nourished and well developed General Appearance ED: well developed HEENT Reports normocephalic, head/scalp atraumatic and moist mucous membranes Eyes PERRL and EOMs intact bilaterally Neck no lymphadenopathy, supple and no JVD Resp normal respiratory effort and clear to auscultation bilaterally Cardio regular rate, regular rhythm and no murmurs GI normal to inspection, nondistended, normoactive bowel sounds and non-tender Palpation: soft Back/Spine no CVA tenderness and normal ROM Extremity Extremity Narrative: Patient has some varicosities of the bilateral legs. There is no gross leg swelling or calf tenderness. There are no palpable cords. Anterior left thigh demonstrates some mild varicosities in the mid aspect of the thigh anteriorly is some purple ecchymosis of about 5 cm x 3 cm dimensions. There is no associated hematoma. There are no cords palpated or tenderness above this area along the varicose vein. I do not appreciate any thrombosis of the veins. General Extremety ED: Negative for edema General Extremity: Negative for edema Neuro oriented x3 and CN's II-XII intact bilaterally Sensorium / Orientation: alert Motor Exam: strength 5/5 throughout Psych mental status grossly normal Mood & Affect: Negative for depressed or tearful Skin no rashes or lesions noted and no wounds MDM MDM MDM Narrative Medical decision making narrative: Differential diagnosis includes but not limited to DVT hematoma superficial thrombophlebitis hematoma Patient may have had a clot in the superficial varicose vein. By rubbing it this could have ruptured the vein resulting in ecchymosis. At this point I do not feel strongly given the lack of distal symptoms or proximal symptoms that she would need a formal duplex ultrasound. I believe that the bleeding has stopped at this time and should resolve over the next 1 to 2 weeks. Patient to follow-up as needed return if worsening or concerns History & Record Review Discussion w/independent historian: Patient Discharge Plan Triage Chief Complaint: Lower Extremity Injury ED Provider: Bobby Colunga Dx/Rx/DC Orders Clinical Impression: Varicose vein of leg, Nontraumatic hematoma of soft tissue Instructions: ED Varicose Veins Prescriptions: No Action methylprednisolone [Medrol (Giovanni)] 4 mg tablets,dose pack See Rx Instructions PO PER PKG DIR Qty: 21 0RF Rx Instructions: PO PER PKG DIR for 6 days Primary Care Provider: Chan Mcclendon Referrals: Chan Mcclendon MD [Primary Care Provider, Internal Medicine] - As Needed Activity Restrictions/Additional Instructions: The bruising of the skin will be reabsorbed by the body. No specific treatment is best at this point to make it resolve quicker. Print Language: Indonesian Disposition Disposition: Home, Self Care
== END 2025-05-23 11:30 | disposition home or self-care (01) ==
LOC: ED 11:28
PROVIDERS: Emergency Provider Emergency Medicine; PCP Internal Medicine; Visit Provider Emergency Medicine
DX: I83.90 Asymptomatic varicose veins of unspecified lower extremity (principal); M54.9 Dorsalgia, unspecified; Z87.891 Personal history of nicotine dependence; M79.81 Nontraumatic hematoma of soft tissue; G89.29 Other chronic pain
CPT/HCPCS: 99282